=== PATIENT | female | born 1950 | race Caucasian/White ===

== ENCOUNTER 2021-04-02 20:08 | Inpatient (IN) | payer MEDICARE ==
[~2021-04-02] VITALS: Ht 167.6 cm; Wt 90.7 kg
--- NOTE | 2021-04-02 20:19 | NUR ---
BIBRA 89 FROM HOME C/O FEVER, HEADACHE, BODYACHE. UPON TRAIGE TEMP 100.7. PUT PT ON O2 VIA 3LPM SATTING AT 94%. CONNECTED PT TO POX AND MONITOR.
[2021-04-02] MEDS ORDERED: ACETAMINOPHEN ES 500 MG TABLET PO ONE (20:30)
[2021-04-02] MEDS ORDERED: DEXAMETHASONE SOD PHOSPHATE 10 MG/ML VIAL IV ONE (20:30)
--- NOTE | 2021-04-02 20:33 | NUR ---
RFA #18G S/L; PATENT AND INTACT. BLOOD COLLECTED AND SENT TO LAB. COLLECTED COVID PCR AND ANTIGEN SWAB AND SENT TO LAB
[2021-04-02] MEDS ORDERED: DEXAMETHASONE SOD PHOSPHATE 10 MG/ML VIAL ONE (20:37)
[2021-04-02] MEDS ORDERED: ACETAMINOPHEN ES 500 MG TABLET ONE (20:37)
--- NOTE | 2021-04-02 20:40 | NUR ---
PLACEMENT OFFICER AT PT'S BEDSIDE
[2021-04-02 21:20] LABS: BASOPHILS % (AUTO) 0.3 % (0.0-2.0); HEMATOCRIT 37 % (33-45); HEMOGLOBIN 12.7 g/dL (11.5-14.8); LYMPHOCYTES # (AUTO) 0.7 K/uL (0.8-4.8); MEAN CORPUSCULAR HGB CONC 34 g/dl (31.0-36.0); MEAN CORPUSCULAR VOLUME 87 fL (82-100); MONOCYTES # (AUTO) 0.3 K/uL (0.1-1.30); MONOCYTES % (AUTO) 4.2 % (2.0-12.0); NEUTROPHILS # (AUTO) 6.3 K/uL (1.8-8.9); NEUTROPHILS % (AUTO) 86.5 % (43.0-81.0); PLATELET COUNT (AUTO) 187 K/uL (150-450); RED BLOOD CELL COUNT(AUTO) 4.28 MIL/uL (4.0-5.2); WHITE BLOOD COUNT (AUTO) 7.2 K/uL (4.3-11.0)
[2021-04-02 22:20] LABS: ALANINE AMINOTRANSFERASE 35 U/L (12-78); ALBUMIN 3.5 g/dL (3.4-5.0); ALKALINE PHOSPHATASE 114 U/L (46-116); ASPARTATE AMINOTRANSFERASE 21 U/L (15-37); BILIRUBIN,DIRECT 0.2 mg/dL (0.0-0.2); BILIRUBIN,TOTAL 0.6 mg/dL (0.2-1.0); CALCIUM, SERUM 8.1 mg/dL (8.5-10.1); CARBON DIOXIDE 24 mmol/L (21-32); CHLORIDE 100 mmol/L (98-107); CREATININE 0.7 mg/dL (0.6-1.3); GLUCOSE 126 mg/dL (74-106); POTASSIUM 3.6 mmol/L (3.5-5.1); SODIUM SERUM 136 mmol/L (136-145); UREA NITROGEN, BLOOD 18 mg/dL (7-18)
[2021-04-02] MEDS ORDERED: CEFTRIAXONE 1 G in IV D5W 50 ML IV SCH (23:30)
[2021-04-02] MEDS ORDERED: ALBUTEROL SULFATE 8 GM HFA.AER.AD IH PRN (23:30)
[2021-04-02] MEDS ORDERED: ZITHROMAX 500 MG/250 ML D5W IV SCH (23:30)
[2021-04-02] MEDS ORDERED: AZITHROMYCIN 500 MG in IV D5W 250 ML IV SCH (23:30)
--- NOTE | 2021-04-03 00:18 | NUR ---
URINE COLLECTED AND SENT TO LAB
--- NOTE | 2021-04-03 00:57 | NUR ---
PT IN BED SLEEPING, NO DISTRESS NOTED.
[2021-04-03 01:01] LABS: BILIRUBIN,URINE NEGATIVE (NEGATIVE); COLOR,URINE YELLOW (YELLOW); LEUKOCYTE ESTERASE ,URINE NEGATIVE (NEGATIVE); NITRITE, URINE NEGATIVE (NEGATIVE); PH,URINE 6.5 (5.0-8.0); PROTEIN,URINE NEGATIVE (NEGATIVE); UGLUCOSE NEGATIVE (NEGATIVE); UROBILINOGEN,URINE 0.2 EU/dL (0.2)
--- NOTE | 2021-04-03 01:39 | NUR ---
ROOM 101
--- NOTE | 2021-04-03 02:13 | NUR ---
PARAS NURSE WILL CALL BACK FOR REPORT
--- NOTE | 2021-04-03 02:32 | NUR ---
REPORT GIVEN TO NISHA PEÑA FOR DON
--- NOTE | 2021-04-03 03:00 | NUR ---
PT TRANSFERED PER ACLS PROTOCOL
--- NOTE | 2021-04-03 03:10 | NUR ---
JR. JAVA DEVELOPER NOTE, RECEIVED 70 YEAR OLD FEMALE ADMITTED FROM ER DEPARTMENT IN COMPANY OF 2 NURSES, UNDER MEDICAL SERVICES OF PADMA HERNANDEZ MEAT BUTCHER, WITH ADMITTING DX COVID/PNA, PATIENT A/O X4 ABLE TO VERBALIZE CONCERNS, ON 3LPM VIA NC WITH O2 955 AT THIS TIME, VS 100/62, 20, 99.1, 73, SKIN INTACT, IV SITE IN RIGHT FA 18G, PATENT AND INTACT, NO MEDICAL HX REPORTED, ATTACHED TO TELE MONITOR AND NOTED SINUS RHYTHM WITH HR 60-70S, BED LOCKED AND IN LOWEST POSITION, AMBULATORY WITH SUPERVISION, S/R OF BED UPX2, CALL LIGHT W/I REACH, WILL CONTINUE TO MONITOR CLOSELY.
[2021-04-03] MEDS ORDERED: CEFTRIAXONE 1 G VIAL ONE (03:22)
[2021-04-03] MEDS ORDERED: AZITHROMYCIN 500 MG VIAL ONE (03:29)
[2021-04-03] MEDS: PANTOPRAZOLE 40 MG VIAL IV SCH ×2 (03:29→08:05)
[2021-04-03] MEDS: ENOXAPARIN SODIUM 40 MG/0.4 ML DISP.SYRIN SQ SCH ×2 (03:30→21:10)
[2021-04-03 04:00] VITALS: BP 105/62
[2021-04-03] MEDS: ACETAMINOPHEN 325 MG TABLET PO PRN ×2 (05:29→09:10)
[2021-04-03] MEDS: ONDANSETRON HCL/PF 4 MG/2 ML VIAL IVP PRN (05:30)
--- NOTE | 2021-04-03 05:30 | NUR ---
RN NOTES, PATIENT CHANGED HER MIND AND DID NOT TAKE THE TYLENOL THAT SHE REQUESTED, MEDICATION WASTED IT.
--- NOTE | 2021-04-03 06:20 | NUR ---
RN CLOSING NOTES, PATIENT IN BED A/O X2, NO SOB/ACUTE DISTRESS NOTED, NSR IN TELE MONITOR WITH HR 60S AT THIS TIME, IV SITE IN LEFT ANDS PATENT AND INTACT, NO SIGNIFICANT CHANGE IN CONDITION, BED LOCKED AND IN LOWEST POSITION, ALARM ON, AMBULATORY WITH SUPERVISION, S/R OF BED UPX2, CALL LIGHT W/I REACH, ISOLATION PRECAUTIONS PER PROTOCOL, WILL ENDORSE CONTINUITY OF CARE TO ONCOMING NURSE.
--- NOTE | 2021-04-03 06:20 | NUR ---
RN CLOSING NOTES, PATIENT IN BED A/O X4, WITH EPISODE OF NAUSEAS AND X1 DIARRHEA, STATED BECAUSE SHE HAD STOMACH EMPTY, SNACK PROVIDED, NSR IN TELE MONITOR WITH HR 70S AT THIS TIME, IV SITE IN RIGHT FA 18G, PATENT AND INTACT, NO SIGNIFICANT CHANGE IN CONDITION, BED LOCKED AND IN LOWEST POSITION, AMBULATORY WITH SUPERVISION, S/R OF BED UPX2, CALL LIGHT W/I REACH, WILL ENDORSE CONTINUITY OF CARE TO ONCOMING NURSE.
--- NOTE | 2021-04-03 07:41 | NUR ---
telemarketing supervisor note patient in bed , alert oriented x3 , o 2l nc, no sob noted at this timw, on tele monitor sr hr 88, rt fa hl intat and flushed well , bed in lowest and locked position, call light within reach, jose alberto of care discussed with patient , will cont to monitor
[2021-04-03] MEDS ORDERED: ATOR20TA PO (07:55)
[2021-04-03] MEDS ORDERED: ESOM40CA PO (07:55)
[2021-04-03] MEDS: ZINC SULFATE 220 MG CAPSULE PO SCH (08:05)
[2021-04-03] MEDS: CHOLECALCIFEROL (VITAMIN D 3) 400 UNIT TABLET PO SCH (08:05)
[2021-04-03] MEDS: DEXAMETHASONE SOD PHOSPHATE 4 MG/ML VIAL IV SCH (08:05)
[2021-04-03] MEDS: ASCORBIC ACID 500 MG TABLET PO SCH (08:05)
[2021-04-03 08:09] LABS: SQUAMOUS EPITHELIAL CELL,UR Few /HPF (None Seen); WBC,URINE 0-2 /HPF (0-3)
[2021-04-03 08:10] LABS: BACTERIA,URINE Rare /HPF (None Seen)
[2021-04-03 09:19] VITALS: BP 91/49
--- NOTE | 2021-04-03 09:24 | NUR ---
DATA REPORTING ANALYST NOTE C\O HEADACHE TYLENOL PO GIVEN WILL F\U
--- NOTE | 2021-04-03 11:24 | NUR ---
PHOTO FINISH PHOTOGRAPHER NOTE DR ROSAS AT BEDSIDE UPDATE PATIENT CONDITION
[2021-04-03 12:00] VITALS: BP 103/61
--- NOTE | 2021-04-03 12:14 | NUR ---
inbound telemarketer note rounds made patient resting comfortably in bed
--- NOTE | 2021-04-03 13:10 | NUR ---
MOUNTER CLARINETS NOTE PATIENT WANTS TO HAVE PRASAD CALLE MD NOTIFIED OK TO CHANGE ,CALLED TO DIETARY
--- NOTE | 2021-04-03 15:43 | NUR ---
TEXTILE CONVERTER NOTE ROUNDS MADE ALL NEEDS ATTENDED WILL MONITOR
[2021-04-03 15:55] LABS: HEMATOCRIT 39 % (33-45); HEMOGLOBIN 13.1 g/dL (11.5-14.8); LYMPHOCYTES # (AUTO) 0.7 K/uL (0.8-4.8); LYMPHOCYTES % (AUTO) 15.5 % (20.0-44.0); MEAN CORPUSCULAR HGB CONC 34 g/dl (31.0-36.0); MEAN CORPUSCULAR VOLUME 87 fL (82-100); MONOCYTES # (AUTO) 0.2 K/uL (0.1-1.30); MONOCYTES % (AUTO) 4.5 % (2.0-12.0); NEUTROPHILS # (AUTO) 3.9 K/uL (1.8-8.9); PLATELET COUNT (AUTO) 217 K/uL (150-450); RED BLOOD CELL COUNT(AUTO) 4.42 MIL/uL (4.0-5.2); WHITE BLOOD COUNT (AUTO) 4.8 K/uL (4.3-11.0)
[2021-04-03 16:00] VITALS: BP 101/59
[2021-04-03 16:32] LABS: CALCIUM, SERUM 8.7 mg/dL (8.5-10.1); CREATININE 0.9 mg/dL (0.6-1.3); POTASSIUM 4.1 mmol/L (3.5-5.1)
[2021-04-03 18:43] LABS: C-REACTIVE PROTEIN 4.7 mg/dL (0.0-0.9)
--- NOTE | 2021-04-03 18:46 | NUR ---
SOFTWARE COMPUTER SPECIALIST NOTE PATIENT UP ON CHAIR, NO SOB NOTED ,NOT IN DISTRESS, HAVING DINNER,NO SOB NOTED AT THIS TIME, BED IN LOWEST AND LOCKED POSITION , CALL LIGHT WITHIN REACH , ALL NEEDS ATTENDED WILL CONT TO MONITOR
[2021-04-03 18:47] LABS: ALBUMIN 3.2 g/dL (3.4-5.0); BILIRUBIN,TOTAL 0.5 mg/dL (0.2-1.0)
[2021-04-03 20:00] VITALS: BP 99/50
--- NOTE | 2021-04-03 20:00 | NUR ---
RN OPENING NOTES: RECEIVED PATIENT AWAKE IN BED, BED IN LOW POSITION, CALL LIGHTS WITHIN REACH, NO COMPLAIN OF PAIN AND DISCOMFORT AT THIS TIME, AMBULATORY , A/O X4 ABLE TO MAKE NEEDS KNOWN, PATIENT HAS IV LINE AT RFA#18SL, ON O2 INHALATION AT 2LPM SATURATING WELL, ON TELE MONITORING, NO SYMPTOMS OBSERVED, PATIENT KEPT CLEAN AND DRY, ALL NEEDS MET, WILL CONTINUE TO MONITOR.
[2021-04-03] MEDS ORDERED: CEFTRIAXONE 1 G in IV D5W 50 ML IV SCH (21:00)
[2021-04-04] VITALS: BP 122/68
[2021-04-04 04:00] VITALS: BP 95/54
--- NOTE | 2021-04-04 05:42 | NUR ---
RN CLOSING NOTES: PATIENT SLEEP IN BED COMFORTABLY AROUSABLE TO VERBAL STIMULI, BED IN LOW POSITION, CALL LIGHTS WITHIN REACH, NO COMPLAIN OF PAIN AND DISCOMFORT AT THIS TIME, ON TELE MONITORING, ON O2 INHALATION AT 2LPM NO SOB OR ANY RESPIRATORY DISTRESS WAS OBSERVED, PATIENT KEPT CLEAN AND DRY, ALL NEEDS MET, ENDORSE TO INCOMING SHIFT.
--- NOTE | 2021-04-04 07:42 | NUR ---
RN OPENING NOTE PATIENT RECEIVED IN BED, AWAKE, A&OX4. PATIENT ON 2L O2 NC WITH NO SIGNS OF LABORED BREATHING AT THIS TIME. RIGHT FA 18G IV IN PLACE, PATENT WITH NO SIGNS OF INFILTRATION. NO SIGNS OF DISTRESS NOTED AT THIS TIME. BED LOCKED AND IN LOWEST POSITION, CALL LIGHT WITHIN REACH, 2 SIDE RAILS UP. WILL CONTINUE TO MONITOR.
[2021-04-04 08:00] VITALS: BP 129/64
[2021-04-04] MEDS: PANTOPRAZOLE 40 MG VIAL IV SCH (08:58)
[2021-04-04] MEDS: CHOLECALCIFEROL (VITAMIN D 3) 400 UNIT TABLET PO SCH (08:58)
[2021-04-04] MEDS: ASCORBIC ACID 500 MG TABLET PO SCH (08:58)
[2021-04-04] MEDS: ZINC SULFATE 220 MG CAPSULE PO SCH (08:58)
[2021-04-04] MEDS: ACETAMINOPHEN 325 MG TABLET PO PRN (08:58)
[2021-04-04] MEDS: DEXAMETHASONE SOD PHOSPHATE 4 MG/ML VIAL IV SCH (08:59)
[2021-04-04 12:00] VITALS: BP 107/56
[2021-04-04 16:00] VITALS: BP 111/60
[2021-04-04 16:29] LABS: BASOPHILS % (AUTO) 0.1 % (0.0-2.0); HEMATOCRIT 36 % (33-45); HEMOGLOBIN 12.1 g/dL (11.5-14.8); LYMPHOCYTES # (AUTO) 0.4 K/uL (0.8-4.8); LYMPHOCYTES % (AUTO) 7.7 % (20.0-44.0); MEAN CORPUSCULAR HGB CONC 34 g/dl (31.0-36.0); MEAN CORPUSCULAR VOLUME 87 fL (82-100); MONOCYTES # (AUTO) 0.2 K/uL (0.1-1.30); MONOCYTES % (AUTO) 3.8 % (2.0-12.0); NEUTROPHILS # (AUTO) 4.8 K/uL (1.8-8.9); NEUTROPHILS % (AUTO) 88.4 % (43.0-81.0); PLATELET COUNT (AUTO) 193 K/uL (150-450); RED BLOOD CELL COUNT(AUTO) 4.06 MIL/uL (4.0-5.2); WHITE BLOOD COUNT (AUTO) 5.4 K/uL (4.3-11.0)
[2021-04-04 16:41] LABS: CALCIUM, SERUM 7.7 mg/dL (8.5-10.1); CREATININE 0.8 mg/dL (0.6-1.3); MAGNESIUM 2.1 mg/dL (1.8-2.4); PHOSPHORUS 4.1 mg/dL (2.5-4.9); POTASSIUM 4.6 mmol/L (3.5-5.1)
[2021-04-04 17:57] LABS: C-REACTIVE PROTEIN 2.8 mg/dL (0.0-0.9)
--- NOTE | 2021-04-04 18:30 | NUR ---
RN CLOSING NOTE PATIENT REMAINS IN BED, AWAKE, A&OX4. PATIENT ON 2L O2 NC WITH NO SIGNS OF LABORED BREATHING AT THIS TIME. RIGHT FA 18G IV IN PLACE, PATENT WITH NO SIGNS OF INFILTRATION. NO SIGNS OF DISTRESS NOTED AT THIS TIME. ALL NEEDS ATTENDED DURING SHIFT. BED LOCKED AND IN LOWEST POSITION, CALL LIGHT WITHIN REACH, 2 SIDE RAILS UP. WILL ENDORSE TO RECORDIST NURSE.
--- NOTE | 2021-04-04 19:30 | NUR ---
RN opening notes Received Pt from morning nurse. Pt is laying in bed comfortably listening to music. Pt is alert and orientedX4. Respiration on 2 L NC. No SOB. No S/S of distress noted. RFA# 18 is clean, intact, flushes easily and SL. Safety precautions is maintained. bed at low position, braked locked, bed alarm is on, hob elevated, side rails upX2 and call light is within reach. Will continue to monitor.
[2021-04-04 20:00] VITALS: BP 95/55
[2021-04-04] MEDS: ENOXAPARIN SODIUM 40 MG/0.4 ML DISP.SYRIN SQ SCH (20:30)
[2021-04-05] MEDS: ONDANSETRON HCL/PF 4 MG/2 ML VIAL IVP PRN (00:18)
--- NOTE | 2021-04-05 00:27 | NUR ---
RN notes Pt is feeling nausea no vomiting and requesting med. Administered zofran 4 mg/iv push/prn as ordered. Will continue to monitor.
[2021-04-05 01:00] VITALS: BP 125/73
[2021-04-05 04:00] VITALS: BP 109/55
--- NOTE | 2021-04-05 06:32 | NUR ---
RN closing notes Pt is resting in bed comfortably. Pt is alert and orientedX4. Respiration on 2 L NC. No SOB. No S/S of distress noted. RFA# 18 is clean, intact, flushes easily and SL. Routine meds were given as ordered. Kept Pt clean, dry and comfortable. Safety precautions is maintained. bed at low position, braked locked, bed alarm is on, hob elevated, side rails upX2 and call light is within reach. Will endorse to am nurse for DON.
[2021-04-05] MEDS ORDERED: PANTOPRAZOLE 40 MG TABLET.DR PO SCH (07:30)
[2021-04-05 07:33] LABS: CALCIUM, SERUM 8.4 mg/dL (8.5-10.1); CREATININE 0.7 mg/dL (0.6-1.3); MAGNESIUM 2.1 mg/dL (1.8-2.4); PHOSPHORUS 4.1 mg/dL (2.5-4.9)
[2021-04-05 07:46] LABS: BASOPHILS % (AUTO) 0.1 % (0.0-2.0); HEMATOCRIT 37 % (33-45); HEMOGLOBIN 12.3 g/dL (11.5-14.8); LYMPHOCYTES % (AUTO) 29.1 % (20.0-44.0); MEAN CORPUSCULAR HGB CONC 34 g/dl (31.0-36.0); MEAN CORPUSCULAR VOLUME 87 fL (82-100); MONOCYTES # (AUTO) 0.4 K/uL (0.1-1.30); MONOCYTES % (AUTO) 11.4 % (2.0-12.0); NEUTROPHILS # (AUTO) 1.9 K/uL (1.8-8.9); NEUTROPHILS % (AUTO) 59.4 % (43.0-81.0); PLATELET COUNT (AUTO) 172 K/uL (150-450); RED BLOOD CELL COUNT(AUTO) 4.18 MIL/uL (4.0-5.2); WHITE BLOOD COUNT (AUTO) 3.3 K/uL (4.3-11.0)
--- NOTE | 2021-04-05 07:46 | NUR ---
RN OPENING NOTE- PT ASLEEP IN BED, EASILY AWAKENED. BED IN LOW POSITION, CALL LIGHT WITHIN REACH. AMBULATORY , A/O X4 ABLE TO MAKE NEEDS KNOWN, PATIENT HAS IV LINE AT RFA#18SL, ON O2 INHALATION AT 2LPM SATURATING WELL, ON TELE MONITORING, NO SYMPTOMS OBSERVED, PATIENT KEPT CLEAN AND DRY, ALL NEEDS MET, WILL CONTINUE TO MONITOR. NO BEHAVIORAL ISSUES AT PRESENT THOUGH AWOL ATTEMPTED EARLIER LAST SHIFT Addendum: 04/05/21 at 0748 by KINA LEVI RN WRONG PATIENT INFO ABOVE
--- NOTE | 2021-04-05 07:48 | NUR ---
RN OPENING NOTE- PATIENT RECEIVED IN BED, AWAKE, A&OX4. SHE MAKES NEEDS KNOWN. PATIENT ON 2L O2 NC WITH NO SIGNS OF LABORED BREATHING AT THIS TIME. LUNGS W DIMINISHED BREATH SOUNDS ON AUSCULTATION. RIGHT FA 18G IV IN PLACE, PATENT WITH NO SIGNS OF INFILTRATION. NO SIGNS OF DISTRESS NOTED AT THIS TIME. BED LOCKED AND IN LOWEST POSITION, CALL LIGHT WITHIN REACH, 2 SIDE RAILS UP. WILL CONTINUE TO MONITOR/ ASSIST NEEDED
[2021-04-05 08:00] VITALS: BP 109/68
[2021-04-05] MEDS: ASCORBIC ACID 500 MG TABLET PO SCH (08:16)
[2021-04-05] MEDS: CHOLECALCIFEROL (VITAMIN D 3) 400 UNIT TABLET PO SCH (08:16)
[2021-04-05] MEDS: ZINC SULFATE 220 MG CAPSULE PO SCH (08:16)
[2021-04-05] MEDS: DEXAMETHASONE SOD PHOSPHATE 4 MG/ML VIAL IV SCH (08:17)
--- NOTE | 2021-04-05 13:37 | NUR ---
RN NOTE- PT TITRATED SELF OFF O2 THIS MORNING. REMOVED NC AND WENT ABOUT HER ADLS W EVEN NON LABORED BREATHS. PERIODIC CHECK OF O2 SATS BETWEEN 90-95% ON RA. DR MERCER NOTIFIED OF PT DESIRE TO DC.
--- NOTE | 2021-04-05 14:25 | NUR ---
RN NOTE- PT BEGAN YELLING IN HALLWAY STATING SHE WAS LEAVING TODAY. SPOKE W DORIAN MERCER AND HE CAME TO SEE PT. TOLD HER SHE WAS NOT READY FOR DC . PT YELLED INSISTING SHE WAS LEAVING, WAS FINE AND COULD GO HOME. PT SIGNED AMA FORM AND CALLED FAMILY TO PICK HER UP. IN LAST FEW MINUTES, PT DECIDED TO LEAVE ON HER OWN AND [place]. STATED SHE'D GET A RIDE. PROVIDED HER W N95 MASK AND FACE SHIELD. EXPLAINED THAT SHE SHOULD STAY IN HOSPITAL A MD ORDERED. PT REFUSED ANDS LEFT WALKING TOWARDS [facility]. SECURITY AWARE.
== END 2021-04-05 14:16 | disposition left against medical advice (07) | DRG 177 ==
LOC: ER 20:43 → TELE1 04-03 02:27 → MEDSG1 04-04 09:34
PROVIDERS: ADMIT Nurse Practitioner Acute Care; ATTEND Nurse Practitioner Acute Care
DX: U07.1 COVID-19 (principal); J12.82 Pneumonia due to coronavirus disease 2019; J96.01 Acute respiratory failure with hypoxia; E44.1 Mild protein-calorie malnutrition; E66.9 Obesity, unspecified; Z68.32 Body mass index [BMI] 32.0-32.9, adult; E78.5 Hyperlipidemia, unspecified; Z79.899 Other long term (current) drug therapy; F41.9 Anxiety disorder, unspecified; Z91.14 Patient's other noncompliance with medication regimen
CPT/HCPCS: 36415; 71045-TC; 80048-TC; 80053-TC; 80061-TC; 80076-TC; 81001; 82550-TC; 82728-TC; 83605-TC; 83615-TC; 83735-TC; 84100-TC; 84484-TC; 85025-TC; 85378-TC; 85730-TC; 86140-TC; 86803; 87040-TC; 87081-TC; 87086-TC; 87806; C9113; C9803; G0378; J0456; J0696; J1100; J1650; J2405; J7040; J7060; U0003